=== PATIENT | male | born 1960 | race Caucasian/White ===

== ENCOUNTER 2018-11-26 09:52 | Outpatient (CLI) | payer OTHER, SELFPAY ==
[2018-11-26 10:57] LABS: Anion Gap 8.5 mmol/L (3-11); BUN 16 mg/dL (7-18); CO2 27.5 mmol/L (21.0-32.0); CREATININE 1.17 mg/dL (0.70-1.30); Calcium 9.1 mg/dL (8.5-10.1); Chloride 104 mmol/L (98-107); Glucose 143 mg/dL (70-100); NT-proBNP 215 pg/mL; Potassium 4.1 mmol/L (3.5-5.1); Sodium 140 mmol/L (136-145)
== END 2018-11-26 10:12 ==
PROVIDERS: PCP Family Medicine; Visit Provider Nurse Practitioner
DX: D86.85 Sarcoid myocarditis (principal)
CPT/HCPCS: 36415; 80048; 83880

== ENCOUNTER 2019-02-01 11:49 | Outpatient (CLI) | payer OTHER, SELFPAY ==
[2019-02-01 12:23] LABS: HCT 45.5 % (40.0-50.0); HGB 15.4 g/dL (13.5-17.5); Mean Corp. HGB Concentration 33.8 g/dL (32.0-36.0); Mean Corpuscular Hemoglobin 31.1 pg (27.0-33.0); Mean Corpuscular Volume 91.9 fL (80-95); Mean Platelet Volume 10.6 fL (8.0-11.0); Platelet Count 232 x1000/uL (130-400); RBC 4.95 m/cumm (4.50-6.00); RBC Distribution Width 12.9 % (11.8-14.1)
[2019-02-01 13:45] LABS: Anion Gap 8.2 mmol/L (3-11); BUN 18 mg/dL (7-18); CO2 28.8 mmol/L (21.0-32.0); CREATININE 1.07 mg/dL (0.70-1.30); Calcium 9.2 mg/dL (8.5-10.1); Chloride 103 mmol/L (98-107); Glucose 123 mg/dL (70-100); NT-proBNP 222 pg/mL; Potassium 4.4 mmol/L (3.5-5.1); Sodium 140 mmol/L (136-145)
[2019-02-01 14:02] LABS: Vitamin D 25 Total 23.4 ng/ml (30-100)
== END 2019-02-01 12:09 ==
PROVIDERS: PCP Family Medicine; Visit Provider Internal Medicine Cardiovascular Disease
DX: D86.85 Sarcoid myocarditis (principal)
CPT/HCPCS: 36415; 80048; 82306; 85027; 83880

== ENCOUNTER 2019-04-13 11:02 | Outpatient (CLI) | payer OTHER, SELFPAY ==
[2019-04-13 11:29] LABS: Abs Immature Grans 0.01 k/cumm (0.0-0.09); Absolute Basophil Count 0.03 k/cumm (0.0-0.2); Absolute Eosinophil Count 0.05 k/cumm (0.0-0.7); Absolute Lymphocyte Count 0.97 k/cumm (1.2-3.4); Absolute Monocyte Count 0.47 k/cumm (0.11-0.7); Absolute Neutrophil Count 8.42 k/cumm (1.2-6.7); Basophils % 0.3; Eosinophils % 0.5; HCT 44.7 % (40.0-50.0); HGB 15.5 g/dL (13.5-17.5); Immature Grans % 0.1; Lymphocytes % 9.7; Mean Corp. HGB Concentration 34.7 g/dL (32.0-36.0); Mean Corpuscular Hemoglobin 31.4 pg (27.0-33.0); Mean Corpuscular Volume 90.7 fL (80-95); Mean Platelet Volume 10.6 fL (8.0-11.0); Monocytes % 4.7; Neutrophils % 84.7; Platelet Count 204 x1000/uL (130-400); RBC 4.93 m/cumm (4.50-6.00); RBC Distribution Width 13.2 % (11.8-14.1); White Blood Cell Count 9.95 k/cumm (4.4-10.8)
[2019-04-13 12:43] LABS: ALT 62 U/L (12-78); AST 29 U/L (15-37); Albumin 3.6 g/dL (3.4-5.0); Alkaline Phosphatase 82 U/L (46-116); Anion Gap 10.1 mmol/L (3-11); BUN 20 mg/dL (7-18); Bilirubin, Total 0.6 mg/dL (0.2-1.0); CO2 25.9 mmol/L (21.0-32.0); CREATININE 0.96 mg/dL (0.70-1.30); Calcium 8.9 mg/dL (8.5-10.1); Chloride 104 mmol/L (98-107); Glucose 120 mg/dL (70-100); Potassium 4.2 mmol/L (3.5-5.1); Sodium 140 mmol/L (136-145); Total Protein 6.4 g/dL (6.4-8.2)
== END 2019-04-13 11:22 ==
PROVIDERS: PCP Family Medicine; Visit Provider Internal Medicine Pulmonary Disease
DX: D86.85 Sarcoid myocarditis (principal)
CPT/HCPCS: 36415; 80053; 85025

== ENCOUNTER 2019-06-18 09:23 | Outpatient (CLI) | payer OTHER, SELFPAY ==
[2019-06-18 10:05] LABS: Abs Immature Grans 0.04 k/cumm (0.0-0.09); Absolute Basophil Count 0.04 k/cumm (0.0-0.2); Absolute Eosinophil Count 0.07 k/cumm (0.0-0.7); Absolute Monocyte Count 0.77 k/cumm (0.11-0.7); Basophils % 0.3; Eosinophils % 0.6; HCT 45.9 % (40.0-50.0); HGB 15.9 g/dL (13.5-17.5); Immature Grans % 0.3; Lymphocytes % 8.4; Mean Corp. HGB Concentration 34.6 g/dL (32.0-36.0); Mean Corpuscular Hemoglobin 31.9 pg (27.0-33.0); Monocytes % 6.5; Neutrophils % 83.9; Platelet Count 202 x1000/uL (130-400); RBC 4.99 m/cumm (4.50-6.00); RBC Distribution Width 14.2 % (11.8-14.1); White Blood Cell Count 11.84 k/cumm (4.4-10.8)
[2019-06-18 10:14] LABS: Absolute Lymphocyte Count 0.99 k/cumm (1.2-3.4); Absolute Neutrophil Count 9.93 k/cumm (1.2-6.7)
[2019-06-18 10:43] LABS: ALT 51 U/L (12-78); AST 20 U/L (15-37); Albumin 3.8 g/dL (3.4-5.0); Alkaline Phosphatase 88 U/L (46-116); Anion Gap 10.2 mmol/L (3-11); BUN 23 mg/dL (7-18); Bilirubin, Total 0.6 mg/dL (0.2-1.0); CO2 25.8 mmol/L (21.0-32.0); CREATININE 0.95 mg/dL (0.70-1.30); Calcium 9.3 mg/dL (8.5-10.1); Chloride 104 mmol/L (98-107); Glucose 104 mg/dL (70-100); Potassium 4.6 mmol/L (3.5-5.1); Sodium 140 mmol/L (136-145); Total Protein 6.8 g/dL (6.4-8.2)
== END 2019-06-18 09:43 ==
PROVIDERS: PCP Family Medicine; Referring Provider Internal Medicine Pulmonary Disease; Visit Provider Internal Medicine Pulmonary Disease
DX: D86.85 Sarcoid myocarditis (principal)
CPT/HCPCS: 36415; 80053; 85025

== ENCOUNTER 2019-09-13 14:41 | Outpatient (CLI) | payer OTHER, SELFPAY ==
[2019-09-13 15:37] LABS: HCT 43.4 % (40.0-50.0); HGB 15.1 g/dL (13.5-17.5); Mean Corp. HGB Concentration 34.8 g/dL (32.0-36.0); Mean Corpuscular Hemoglobin 32.1 pg (27.0-33.0); Mean Corpuscular Volume 92.1 fL (80-95); Mean Platelet Volume 10.5 fL (8.0-11.0); Platelet Count 220 x1000/uL (130-400); RBC 4.71 m/cumm (4.50-6.00); RBC Distribution Width 13.2 % (11.8-14.1); White Blood Cell Count 9.63 k/cumm (4.4-10.8)
[2019-09-13 16:14] LABS: ALT 61 U/L (16-63); AST 29 U/L (15-37); Albumin 3.5 g/dL (3.4-5.0); Alkaline Phosphatase 95 U/L (46-116); Anion Gap 9.9 mmol/L (3-11); BUN 19 mg/dL (7-18); Bilirubin, Total 0.7 mg/dL (0.2-1.0); CO2 27.1 mmol/L (21.0-32.0); CREATININE 1.01 mg/dL (0.70-1.30); Calcium 8.8 mg/dL (8.5-10.1); Chloride 103 mmol/L (98-107); Glucose 120 mg/dL (70-100); Potassium 4.5 mmol/L (3.5-5.1); Sodium 140 mmol/L (136-145); Total Protein 6.5 g/dL (6.4-8.2)
== END 2019-09-13 15:01 ==
PROVIDERS: PCP Family Medicine; Visit Provider Internal Medicine Pulmonary Disease
DX: D86.85 Sarcoid myocarditis (principal); E55.9 Vitamin D deficiency, unspecified
CPT/HCPCS: 36415; 80053; 85027

== ENCOUNTER 2019-09-13 14:45 | Outpatient (CLI) | payer OTHER, SELFPAY ==
[2019-09-13 16:35] LABS: Vitamin D 25 Total 30.7 ng/ml (30-100)
== END 2019-09-13 15:05 ==
PROVIDERS: PCP Family Medicine
DX: E55.9 Vitamin D deficiency, unspecified (principal); D86.85 Sarcoid myocarditis
CPT/HCPCS: 82306

== ENCOUNTER 2020-05-26 10:37 | Emergency (ER) | payer OTHER, SELFPAY ==
[2020-05-26 10:43] VITALS: BP 139/86; PULSE 69; RESP 18; TEMP 36.6; O2SAT 99
--- NOTE | 2020-05-26 11:09 | ED.GENADUL_ITS ---
Discharge Plan Disposition Patient Disposition: HOME Condition: Stable Discharge Details Chief Complaint: FlankPain Clinical Impression: Pain of right sacroiliac joint Primary Care Provider: Kell Dangelo ED Provider: Musa Mcrae Home Meds and New Rx's Prescriptions: Continued metoprolol succinate 50 mg tablet extended release 24 hr 50 mg PO QPM RF: 0 folic acid 1 mg tablet 1 mg PO DAILY RF: 0 omega-3 fatty acids 1,000 mg capsule 1,000 mg PO BID RF: 0 coenzyme Q10 10 mg capsule 10 mg PO DAILY RF: 0 cholecalciferol (vitamin D3) 4,000 unit capsule 3,000 unit PO DAILY RF: 0 methotrexate (PF) 15 mg/0.3 mL auto-injector 10 mg SC QWEEK RF: 0 atorvastatin 40 MG tablet 40 mg PO DAILY Qty: 30 RF: 3 aspirin [Aspir-81] 81 MG tablet,delayed release (DR/EC) 1 tab PO DAILY RF: 0 Discharge Instructions Instructions: Leg Pain (ED) Additional Instructions: Please follow-up with physical therapy as prescribed. Home to rest today. No heavy lifting greater than 10 pounds. May perform new to chest and truncal mobilization as we discussed. May use heat and or ice to reduce discomfort. Please use 600 to 800 mg of ibuprofen every 8 hours, with food, as needed for pain. You may also use Tylenol. Continue your regular medications. Return if you develop a fever, abdominal distention/bloating, worsening abdominal pain or vomiting, or any other acute concerns. 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 Reports the gradual onset 4 days ago of right lower abdomen/flank pain. Does seem to be worse with movements. Is somewhat improved with rest. Some increased frequency of urination. No fever or vomiting. No known sick contacts. No recent travel. Past medical history is notable for sarcoidosis with multiorgan involvement, currently maintained on once weekly oral methotrexate. Vital signs are unremarkable and he is afebrile. He does exhibit discrete right lower quadrant tenderness without rebound or guarding. No inguinal masses or tenderness. Differential diagnosis would include sacroiliitis, musculoskeletal sarcoidosis, renal colic, atypical presentation of colitis or diverticulitis. IV access established, referred for urinalysis and laboratory testing. I reviewed [facility] including PET scan from 07/07/2019, this reveals normal head and neck, numerous areas of uptake within the ventricular myocardium as well as in the lungs. Scattered lesions throughout the spleen. Normal activity in all regions of the axial and visualized appendical or skeleton. Patient laboratories reveal a white count of 8, hematocrit 47, platelets 221. Chemistries are reassuring with creatinine 1.0. Urinalysis notable only for specific gravity of 1.03. As the patient is mildly immunosuppressed with methotrexate, he may have an occult infectious process ureteral calculus without hematuria. Therefore, referred for CT of the abdomen and pelvis. This does reveal known areas of sarcoidosis including lower lungs and splenic lesions. The bones and joints and intraperitoneal space are unremarkable. There is no evidence of inflammatory condition present. Given the paucity of findings, must consider that this is musculoskeletal and most likely etiology is SI joint. We discussed referral to physical therapy, home management bleeding NSAIDs, ice, stretching. We also discussed indications to seek reevaluation. Lab Data Lab results reviewed: Yes I reviewed the patient's lab results. Labs: Laboratory Results - last 24 hr 05/26/20 05/26/20 05/26/20 11:15 11:20 11:20 WBC 8.40 RBC 5.32 Hgb 16.4 Hct 47.3 MCV 88.9 MCH 30.8 MCHC 34.7 RDW 14.1 Plt Count 221 MPV 10.8 Immature Gran % 0.1 Neutrophils % 70.9 Lymphocytes % 16.4 Monocytes % 10.5 Eosinophils % 1.5 Basophils % 0.6 Absolute Neutrophils 5.95 Absolute Lymphocytes 1.38 Absolute Monocytes 0.88 H Absolute Eosinophils 0.13 Absolute Basophils 0.05 Sodium 138 Potassium 4.2 Chloride 103 Carbon Dioxide 29.1 Anion Gap 5.9 BUN 17 Creatinine 1.00 Estimated GFR/1.73 m2 >= 60.00 Glucose 110 H Calcium 8.9 Total Bilirubin 0.6 AST 25 ALT 57 Alkaline Phosphatase 108 Total Protein 7.3 Albumin 3.8 Urine Color Yellow Urine Clarity Clear Urine pH 6.0 Ur Specific [place] >= 1.030 H Urine Protein Negative Urine Ketones Negative Urine Blood Negative Urine Nitrite Negative Urine Bilirubin Negative Urine Urobilinogen 0.2 Ur Leukocyte Esterase Negative Urine Glucose Negative HPI General Mode of arrival: ambulatory . Date/Time Provider Initiated Documentation: 05/26/20 10:39 . Limitations to Documentation: no limitations . Information obtained by: patient . History of Present Illness 60 year old M presents to the emergency department with the chief complaint of R flank/lower abdomen pain x4 days, described as moderate, Quality is described as constant, and is localized to the abdomen and right. Patient reports radiation to back. Patient started experiencing this day(s) and it has been other (up and down). Rest improves symptom(s), Movement worsens symptoms . Patient notes denies chest pain, fever/chills, nausea/vomiting and syncope. Patient did receive the following treatments prior to arrival, NSAID Related Data Home Medications Medication Instructions Recorded Confirmed atorvastatin 40 mg PO DAILY #30 tab-cap 07/17/17 05/26/20 aspirin [Aspir-81] 1 tab PO DAILY 04/18/18 05/26/20 cholecalciferol (vitamin D3) 100 3,000 unit PO DAILY 06/01/19 06/01/19 mcg (4,000 unit) capsule coenzyme Q10 10 mg capsule 10 mg PO DAILY cap 06/01/19 05/26/20 folic acid 1 mg tablet 1 mg PO DAILY 06/01/19 05/26/20 methotrexate (PF) 15 mg/0.3 mL 10 mg SC QWEEK 06/01/19 06/01/19 subcutaneous auto-injector metoprolol succinate 50 mg 50 mg PO QPM tab 06/01/19 05/26/20 tablet,extended release 24 hr omega-3 fatty acids 1,000 mg 1,000 mg PO BID cap 06/01/19 05/26/20 capsule Allergies Allergy/AdvReac Type Severity Reaction Status Date / Time No Known Allergies Allergy Unverified 05/26/20 10:47 General Stated Complaint: FlankPain MERRICK: 3 Review of Systems Narrative: no fever, cough, change to taste or smell, no otheracute illness. Stable sarcoid. 6 systems reviewed and otherwise negative. COUNTS INCLUDE 234 BEDS AT THE [facility] Medical History CAD (coronary artery disease) Cardiac sarcoidosis Surgical History (Updated 09/09/18 @ 14:36 by [employer] PA) Arthroplasty of knee Social History Smoking/Tobacco Use Status: Never Drug use: Never Do you feel safe at home: Yes Do you feel safe in your relationship?: Yes Exam Narrative Exam Narrative: GEN: awake, alert, oriented 3. Pleasant, well groomed, interactive. HEAD: Normocephalic, atraumatic EYES: PERRL, EOMI NECK: Full ROM CHEST/RESP: Nontender, clear to auscultation bilateral, no wheeze/rhonchi/rales CARDIOVASCULAR: Distant, RRR, no murmur, rub benny. 2+ Rad pulse bilateral ABDOMEN: Soft, minimal tenderness to deep right lower abdomen/anterior superior iliac spine, no mass. No rebound tenderness. No flank tenderness, no lower midline back tenderness, +Bowel sounds EXT: Full ROM, no edema, no rash. Pain with right straight leg raise. No pain with passive movement of the hip. Neuro: Grossly normal neurologic exam, conversant, interactive. Psych: Speech fluent, thoughts congruent, affect normal Course Vital Signs Vital signs: Vital Signs Temperature 36.6 C 05/26/20 10:43 Pulse 69 05/26/20 10:43 Respiratory Rate 18 05/26/20 10:43 Blood Pressure 139/86 05/26/20 10:43 Pulse Oximetry 99 05/26/20 10:43 Temperature 36.6 C 05/26/20 10:43 Temperature Source Temporal Artery Scan 05/26/20 10:43 Pulse 69 05/26/20 10:43 Respiratory Rate 18 05/26/20 10:43 Respiratory Effort Non-Labored 05/26/20 10:51 Blood Pressure 139/86 05/26/20 10:43 Pulse Oximetry 99 05/26/20 10:43 Oxygen Delivery Method Room Air 05/26/20 10:43 Oxygen Flow Rate 0 05/26/20 10:43 Pain Level 4 05/26/20 10:51
[2020-05-26 11:21] LABS: Bilirubin Negative (Negative); Blood Negative (Negative); Clarity Clear (Clear); Glucose Negative (Negative); Ketones Negative (Negative); Leukocyte Esterase Negative (Negative); Nitrite Negative (Negative); Specific Gravity >= 1.030 (1.005-1.025); Urobilinogen 0.2 EU/dL (Up TO 0.2)
[2020-05-26 11:30] LABS: Abs Immature Grans 0.01 k/cumm (0.0-0.09); Absolute Basophil Count 0.05 k/cumm (0.0-0.2); Absolute Eosinophil Count 0.13 k/cumm (0.0-0.7); Absolute Lymphocyte Count 1.38 k/cumm (1.2-3.4); Absolute Monocyte Count 0.88 k/cumm (0.11-0.7); Absolute Neutrophil Count 5.95 k/cumm (1.2-6.7); Basophils % 0.6; Eosinophils % 1.5; HCT 47.3 % (40.0-50.0); HGB 16.4 g/dL (13.5-17.5); Immature Grans % 0.1 %; Lymphocytes % 16.4; Mean Corp. HGB Concentration 34.7 g/dL (32.0-36.0); Mean Corpuscular Hemoglobin 30.8 pg (27.0-33.0); Mean Corpuscular Volume 88.9 fL (80-95); Mean Platelet Volume 10.8 fL (8.0-11.0); Monocytes % 10.5; Neutrophils % 70.9; Platelet Count 221 x1000/uL (130-400); RBC 5.32 m/cumm (4.50-6.00); RBC Distribution Width 14.1 % (11.8-14.1)
[2020-05-26 11:43] LABS: ALT 57 U/L (16-63); AST 25 U/L (15-37); Albumin 3.8 g/dL (3.4-5.0); Alkaline Phosphatase 108 U/L (46-116); Anion Gap 5.9 mmol/L (3-11); BUN 17 mg/dL (7-18); Bilirubin, Total 0.6 mg/dL (0.2-1.0); CO2 29.1 mmol/L (21.0-32.0); Calcium 8.9 mg/dL (8.5-10.1); Chloride 103 mmol/L (98-107); Glucose 110 mg/dL (74-106); Potassium 4.2 mmol/L (3.5-5.1); Sodium 138 mmol/L (136-145); Total Protein 7.3 g/dL (6.4-8.2)
[2020-05-26 11:49] VITALS: BP 124/72; PULSE 56; RESP 18; O2SAT 96
--- NOTE | 2020-05-26 12:00 | DI.CT_ITS ---
EXAM: CT ABDOMEN PELVIS W CLINICAL HISTORY: RLQ PAIN X 4 DAYS, HX SARCOID. TECHNIQUE: Imaging Protocol: Axial computed tomography images with coronal and sagittal reformatted images were created and reviewed CONTRAST MATERIAL: Intravenous: Omnipaque 350 Contrast volume:100 ml Oral: /yes COMPARISON: CR PORTABLE CHEST ONE VIEW from 12/15/2016 FINDINGS: ABDOMEN: Lung Bases: Scattered small bilateral pulmonary nodules, consistent with the patient's history of mamadou coid. Pacemaker leads in the right atrium and right ventricle. Liver: Normal density. Small cyst inferior right lobe. Gallbladder and biliary tract: No radiodense calculus or dilation. Pancreas: Normal density, no abnormal calcifications or inflammatory process. Spleen: Normal size. Multiple hypodense lesions. Kidneys: Normal size, contour and axis. No radiodense stones or obstructive uropathy. No masses seen. Adrenal glands: No masses seen. Abdominal Aorta: Abdominal portion non-dilated. Soft tissues: Small fatty containing umbilical hernia. PELVIS: Bladder: Symmetric distention, no gross wall thickening. Bowel: Normal appendix. Mild sigmoid diverticulosis. No evidence of diverticulitis. No obstruction or bowel wall thickening. Peritoneal cavity: No ascites, collection or mesenteric inflammatory response. Bones: Within normal limits. Reproductive organs: Within normal limits. Lymph nodes: Mild degenerative disc changes.. Impression: No acute abnormality. RADIATION DOSE DELIVERED: Total DLP DATA REPOSITORY: All CT scans at this facility are submitted to the National Radiology Data Registry (NRDR) Dose Index Registry (DIR) with the [employer] (A[employer]). RADIATION OPTIMIZATION: All CT scans at this facility use at least one of these dose optimization te chniques: automated exposure control; mA and/or kV adjustment per patient size (includes targeted exa ms where dose is matched to clinical indication); or iterative reconstruction.
[2020-05-26] MEDS: Breeza Beverage 473 ML BTL PO ×2 (12:14→12:15)
[2020-05-26] MEDS: Omnipaque 350 MG/ML 50 ML BTL IJ (12:14)
[2020-05-26] MEDS: Omnipaque 350 MG/ML 100 ML BTL IJ (13:10)
[2020-05-26 14:18] VITALS: BP 120/72; PULSE 63; RESP 16; O2SAT 97
--- NOTE | 2020-05-26 14:37 | DI.VRAD_ITS ---
PROCEDURE INFORMATION: Exam: CT Abdomen And Pelvis With Contrast Exam date and time: 05/26/2020 1:38 PM Age: 60 years old Clinical indication: Abdominal pain; Localized; Right lower quadrant (rlq); Additional info: Rlq pain x 4 days, HX sarcoid TECHNIQUE: Imaging protocol: Computed tomography of the abdomen and pelvis with intravenous contrast. COMPARISON: No relevant prior studies available. FINDINGS: Lungs: Bilateral lower lung nodules consistent with clinical history of sarcoidosis. Liver: 7 mm hypodense liver lesion. Gallbladder and bile ducts: Unremarkable. No ductal dilation. Pancreas: Normal. No ductal dilation. Spleen: Multiple hypodense splenic lesions. No splenomegaly. Adrenals: Normal. No mass. Kidneys and ureters: Normal. No hydronephrosis. Stomach and bowel: No acute findings. No obstruction. No mucosal thickening. Appendix: No evidence of appendicitis. Intraperitoneal space: Unremarkable. No free air. No significant fluid collection. Vasculature: No abdominal aortic aneurysm. Lymph nodes: No significant adenopathy. Bladder: Unremarkable as visualized. Reproductive: Unremarkable as visualized. Bones/joints: No acute findings. Soft tissues: Unremarkable. IMPRESSION: No acute findings. Splenic lesions and lung nodules consistent with sarcoidosis. Dictated and Authenticated by: Abdifatah Jorge MD. Ordering:NILS Vigil MD
[2020-05-26 14:44] LABS: C-Reactive Protein 0.12 mg/dL (0.0-0.3)
== END 2020-05-26 15:16 | disposition home or self-care (01) ==
PROVIDERS: Emergency Provider Emergency Medicine; PCP Family Medicine
DX: M54.31 Sciatica, right side (principal)
CPT/HCPCS: 36415; 80053; 99285; 74177; 81003; 85025; 86140; 99284; J3490; Q9967

== ENCOUNTER 2020-06-16 10:20 | Outpatient (CLI) | payer OTHER, SELFPAY ==
[2020-06-20 21:41] LABS: SARS-CoV-2 RNA Undetected (Undetected)
== END 2020-06-16 10:40 ==
PROVIDERS: PCP Family Medicine; Visit Provider Nurse Practitioner Family
DX: Z11.59 Encounter for screening for other viral diseases (principal)
CPT/HCPCS: U0003

== ENCOUNTER 2020-08-08 10:14 | Day surgery (SDC) | payer OTHER, SELFPAY ==
--- NOTE | 2020-08-08 07:23 | W.PM.DSUDISC ---
Discharge Plan Disposition Patient Disposition: HOME Condition: Good Discharge Details Reason For Visit: Left carpal tunnel syndrome Attending Provider: Kristian Spence Primary Care Provider: Kell Dangelo Home Meds and New Rx's Prescriptions: Continued metoprolol succinate 50 mg tablet extended release 24 hr 50 mg PO QPM RF: 0 folic acid 1 mg tablet 1 mg PO DAILY RF: 0 omega-3 fatty acids 1,000 mg capsule 1,000 mg PO BID RF: 0 coenzyme Q10 10 mg capsule 10 mg PO DAILY RF: 0 cholecalciferol (vitamin D3) 4,000 unit capsule 3,000 unit PO DAILY RF: 0 methotrexate (PF) 15 mg/0.3 mL auto-injector 10 mg SC QWEEK RF: 0 atorvastatin 40 MG tablet 40 mg PO DAILY Qty: 30 RF: 3 aspirin [Aspir-81] 81 MG tablet,delayed release (DR/EC) 1 tab PO DAILY RF: 0 Discharge Instructions Stand Alone Forms: Jordy Caputo Tunnel Release Activity:: Activity as Tolerated Remove Dressings/Wound Care:: 48 hours Shower/Bathe:: 48 hours Diet:: As Tolerated Discharge Orders Discharge Orders: Discharge Order (Routine); Ordered 08/08/20 Ordered By: Cathy Lemus DS: Diagnosis Discharge Diagnosis (1) Left carpal tunnel syndrome: Status: Acute
[2020-08-08 10:50] VITALS: BP 117/79; PULSE 60; RESP 16; TEMP 36.1; O2SAT 99
[2020-08-08] MEDS: Lactated Ringers 1,000 ML 80 ML IV (10:55)
[2020-08-08] MEDS: ceFAZolin 2 GM/50 ML BAG IVPB (11:12)
[2020-08-08] MEDS: Sodium Bicarbonate 50 MEQ/50 ML VIAL (11:20)
[2020-08-08 12:05] VITALS: BP 111/73; PULSE 57; RESP 16; TEMP 36.4; O2SAT 97
--- NOTE | 2020-08-09 07:35 | ROE_ITS ---
Date of service: 08/08/20 Time of Service: 11:35 Operative Note Operative Note DATE OF PROCEDURE: 08/08/20 PRE-OP DIAGNOSIS: Right Carpal Tunnel Sydrome POST-OP DIAGNOSIS: same PROCEDURE: Right Endoscopic Carpal Tunnel Release SURGEON: Kristian Spence ANESTHESIA: GETPercy ESTIMATED BLOOD LOSS: 0 PATHOLOGY: none sent TOURNIQUET TIME: 4 COMPLICATIONS: None Patient was transported to: same day Patient's condition: stable Indications: I have seen Sergio in clinic for symptoms of carpal tunnel syndrome. The numbness, tingling, and pain limited function. Clinical exam findings with nerve conduction tests confirmed the diagnosis of carpal tunnel syndrome. Nonoperative measures such as bracing, time, activity modifications had been tried but disability and pain persisted. I discussed carpal tunnel release with the patient. I reviewed the risks of the procedure to include, but not limited to, bleeding, infection, pain, stiffness, incomplete release, damage to nerves or vessels, persistent numbness, recurrence. Despite these risks, the patient elected to proceed. Findings: There was tightened carpal tunnel. This was dilated and released successfully with the endoscopic with increased space within the tunnel. The antebrachial fascia was released proximally freeing the median nerve at the wrist. Procedure Description: Sergio was greeted in the preoperative holding area where the correct side was identified and marked. The consent was reviewed with the patient and signed. The history and physical was updated. All questions were answered. Sergio was taken back to the operating room. The patient was placed into the supine position on the operating room table with the right arm on an arm board. A nonsterile tourniquet was placed high onto the arm. All bony prominences were well padded. Prophylactic antibiotics in the form of Cefazolin were administered. The right arm was then prepped with Chloraprep and draped in a standard fashion with stockinette and extremity drape. A timeout to confirm correct identity, side and site, procedure, allergies, anesthesia, and medical concerns was performed. The surgical site was marked in the volar wrist creases in line with the radial border of the fourth ray. This area was anesthetized with approximately 6cc of 1% Lidocaine. The limb was then exsanguinated with an Esmarch. The skin was incised with a 15 blade, approximately 1cm. The skin only was cut and the deeper tissue was dissected bluntly with a tenotomy scissor, avoiding passing nerve and venous structures. The fascia was penetrated and opened bluntly. A two-prong skin hook was placed under this proximal fascial edge. A series of hamate finders were used to identify and dilate the carpal tunnel. Synovial elevator was used to free synovial attachments to the underside of the transverse carpal ligament. My thumb was kept in the palm to randy the distal extent of the carpal tunnel and correctly position the hand. The [employer] endoscope was inserted without difficulty and without resistance. Excellent vi sualization showed horizontally running fibers of the transverse carpal ligament (TCL). The distal extent of the TCL was visualized and the end of the scope palpated with the thumb. The blade was elevated and withdrawn from distal to proximal. The TCL was split into two flaps. The endoscope was reinserted to confirm complete release and any remnant ligament was incised. The scope was withdrawn and the proximal aspect of the carpal tunnel was grossly inspected and appeared release with the median nerve visible. The antebrachial fascia at the level of the wrist was then freed from the overlying skin and then the underlying median nerve with blunt dissection. This was transected longitudinally for about 3cm proximal to the wrist incision. The wound was then irrigated with easy flow of irrigant distally and proximally. The incision was closed with a single 4-0 Nylon suture. The wound was dressed with Xeroform, Gauze, Kerlix and Zander. The tourniquet was deflated with the initial dressing and held with some pressure. Blood flow returned easily to all digits with capillary refill less than 2 seconds. The patient tolerated the procedure well and was returned to the Same Day Surgery area in a stable condition suffering no known complication.
== END 2020-08-08 12:52 | disposition home or self-care (01) ==
LOC: SUR 10:14
PROVIDERS: PCP Family Medicine; Visit Provider Student in an Organized Health Care Education/Training Program
PROC: 01N54ZZ Release Median Nerve, Percutaneous Endoscopic Approach (ICD-10-PCS; CPT 29848; principal; 2020-08-08 11:15)
DX: G56.02 Carpal tunnel syndrome, left upper limb
CPT/HCPCS: 29848; J0690; J1885; J2001; J2405; J2704

== ENCOUNTER 2021-10-24 11:14 | Outpatient (REF) | payer OTHER, SELFPAY ==
[2021-10-24 15:33] LABS: Source Nasal/Nares
[2021-10-24 15:35] LABS: COVID-19 PCR Negative (Negative)
== END 2021-10-24 11:15 | disposition home or self-care (01) ==
LOC: LBN 11:14
PROVIDERS: PCP Family Medicine; Visit Provider Family Medicine
DX: Z20.822 Contact with and (suspected) exposure to COVID-19 (principal)
CPT/HCPCS: 87635; U0003

== ENCOUNTER 2022-03-07 15:55 | Outpatient (REF) | payer OTHER, SELFPAY ==
[2022-03-08 20:30] LABS: COVID-19 RT-PCR UVMMC Result Negative (Negative)
== END 2022-03-07 15:56 | disposition home or self-care (01) ==
LOC: LBN 15:55
PROVIDERS: PCP Family Medicine; Visit Provider Family Medicine
DX: Z20.822 Contact with and (suspected) exposure to COVID-19 (principal)
CPT/HCPCS: U0003

== ENCOUNTER 2022-05-06 11:17 | Outpatient (REF) | payer OTHER, SELFPAY ==
[2022-05-06 15:35] LABS: AST 30 U/L (15-37); Albumin 3.9 g/dL (3.4-5.0); Alkaline Phosphatase 98 U/L (46-116); Anion Gap 11.1 mmol/L (3-11); BUN 17 mg/dL (7-18); CO2 25.9 mmol/L (21.0-32.0); Calcium 8.5 mg/dL (8.5-10.1); Calculated LDL 161 mg/dL (<100); Chloride 103 mmol/L (98-107); Cholesterol 246 mg/dL (<200); Glucose 91 mg/dL (74-106); HDL Cholesterol 70 mg/dL (40-60); Potassium 4.1 mmol/L (3.5-5.1); Sodium 140 mmol/L (136-145); Triglyceride 78 mg/dL (<150)
[2022-05-06 16:23] LABS: ALT 53 U/L (16-63)
[2022-05-07 09:00] LABS: PSA, Screening 1.2 ng/mL (<=4.5)
== END 2022-05-06 11:18 | disposition home or self-care (01) ==
LOC: NCHCN 11:17
PROVIDERS: PCP Family Medicine; Visit Provider Family Medicine
DX: Z00.00 Encounter for general adult medical examination without abnormal findings (principal); Z13.220 Encounter for screening for lipoid disorders; Z13.228 Encounter for screening for other metabolic disorders; Z12.5 Encounter for screening for malignant neoplasm of prostate
CPT/HCPCS: 80053; 80061; 84153

== ENCOUNTER 2022-06-21 11:03 | Outpatient (CLI) | payer OTHER, SELFPAY ==
--- NOTE | 2022-06-21 10:45 | DI.RAD_ITS ---
Exam(s) XR KNEE RT 3V AP,LAT,JACOBO EXAM: XR KNEE RT 3V AP,LAT,JACOBO CLINICAL HISTORY: RIGHT KNEE PAIN. TECHNIQUE: 2D digital imaging was performed of the right knee. Three views obtained. Lateral and PA tunnel views were obtained. COMPARISON: No exams were available for comparison FINDINGS: BONES: No acute fracture is present. No bony destructive lesion is seen. JOINTS: There is marked joint space narrowing in the medial femoral tibial joint. Periarticular spur ring seen at the posterior patella and the medial femoral tibial joint. No joint effusion is seen. SOFT TISSUE: Normal. IMPRESSION: Osteoarthritis of the right knee. DATA REPOSITORY: RADIATION DOSE DELIVERED:
--- NOTE | 2022-06-21 11:00 | DI.RAD_ITS ---
Exam(s) XR STANDING ALIGNMENT EXAM: XR STANDING ALIGNMENT CLINICAL HISTORY: knee pain. TECHNIQUE: 2D digital imaging was performed. Four images were obtained. COMPARISON: No exams were available for comparison FINDINGS: BONES: The hips are well maintained. There are marked degenerative changes seen in the right knee wi th joint space narrowing and periarticular spurring most marked in the medial femoral tibial joint. Moderately severe degenerative changes are seen in the left knee with joint space narrowing and peria rticular spurring. Chondrocalcinosis is present. Findings of a prior right ACL repair are noted. T he ankles are well maintained.The left lower extremity measures 90.3 cm. The right lower extremity m easures 88.5 cm. SOFT TISSUE: Normal. IMPRESSION: Significant osteoarthritis of the knees bilaterally. DATA REPOSITORY: RADIATION DOSE DELIVERED:
== END 2022-06-21 11:04 | disposition home or self-care (01) ==
PROVIDERS: PCP Family Medicine; Referring Provider Family Medicine; Visit Provider Student in an Organized Health Care Education/Training Program
DX: M17.0 Bilateral primary osteoarthritis of knee (principal)
CPT/HCPCS: 73562; 77073

== ENCOUNTER 2022-08-26 04:02 | Outpatient (CLI) | payer OTHER, SELFPAY ==
[2022-08-26 10:48] LABS: HCT 46.3 % (40.0-50.0); MCH 30.7 pg (27.0-33.0); MCHC 34.6 % (32.0-36.0); MCV 89 fL (80-95); MPV 10.3 fL (8.0-11.0); Platelet Count 216 10^3/uL (130-400); RBC 5.21 10^6/uL (4.36-5.78); RDW-SD 42.5 fL; WBC 8.21 10^3/uL (4.4-10.8)
[2022-08-26 11:32] LABS: Anion Gap 6.9 mmol/L (3-11); BUN 17 mg/dL (7-18); CO2 29.1 mmol/L (21.0-32.0); CREATININE 0.9 mg/dL (0.70-1.30); Calcium 9.2 mg/dL (8.5-10.1); Chloride 103 mmol/L (98-107); Estimated GFR 95.37 (mL/min/1.73m2); Glucose 104 mg/dL (74-106); Potassium 4.3 mmol/L (3.5-5.1); Sodium 139 mmol/L (136-145)
== END 2022-08-26 04:03 | disposition home or self-care (01) ==
LOC: LBO 04:02
PROVIDERS: PCP Family Medicine; Visit Provider Student in an Organized Health Care Education/Training Program
DX: M25.561 Pain in right knee (principal); M17.31 Unilateral post-traumatic osteoarthritis, right knee; Z01.818 Encounter for other preprocedural examination; Z01.812 Encounter for preprocedural laboratory examination
CPT/HCPCS: 36415; 80048; 85027

== ENCOUNTER 2022-08-27 06:06 | Day surgery (SDC) | payer OTHER, SELFPAY ==
--- NOTE | 2022-08-26 17:43 | W.ANESPRE ---
General Info Date of Service Date Performed: 08/27/22 Height: 5 ft 6 in Weight: 85.275 kg Body Mass Index (BMI): 30.3 Surgical Procedure: Operation Date: 08/27/22 07:40 Proposed Procedure Side Surgeon p Knee Total Arthroplasty Cementless Right Kristian Spence MD Meds Allergies and Home Medications Allergies Allergy/AdvReac Type Severity Reaction Status Date / Time No Known Allergies Allergy Unverified 08/27/22 06:18 Home Medication Medication Instructions Recorded rosuvastatin 5 mg tablet (Crestor) 5 mg PO DAILY 06/21/22 acetaminophen 500 mg tablet 1,000 mg PO Q8H PRN pain #90 tabs 08/27/22 aspirin 81 mg tablet,delayed 81 mg PO BID #60 tabs 08/27/22 release celecoxib 200 mg capsule 200 mg PO BID PRN pain #60 caps 08/27/22 dexamethasone 4 mg tablet 4 mg PO DAILY #2 tabs 08/27/22 gabapentin 300 mg capsule 300 mg PO QHS #14 caps 08/27/22 oxycodone 5 mg tablet 5 mg PO Q4H #15 tabs 08/27/22 pantoprazole 40 mg tablet,delayed 40 mg PO DAILY #30 tabs 08/27/22 release Current Visit Medications: Current Medications Generic Name Dose Route Start Last Admin Trade Name Freq PRN Reason Stop Dose Admin Acetaminophen 1,000 mg 08/27/22 06:00 Acetaminophen 500 Mg Tab PO 08/27/22 16:00 PREOP [facility] Celecoxib 400 mg 08/27/22 06:00 Celecoxib 200 Mg Cap PO 08/27/22 16:00 PREOP [facility] Gabapentin 300 mg 08/27/22 06:00 Gabapentin 300 Mg Cap PO 08/27/22 16:00 PREOP [facility] Tranexamic Acid 1,000 mg/ 60 mls @ 360 mls/hr 08/27/22 06:00 Sodium Chloride IVPB 08/27/22 16:00 PREOP [facility] Ringer's Solution 1,000 mls @ 80 mls/hr 08/27/22 06:00 IV 08/27/22 23:59 INFUSION [facility] IV Miscellaneous Supplies 1 each 08/27/22 06:00 Iv Access IV 08/27/22 23:59 DIRECTED [facility] Sodium Chloride 0 ml 08/27/22 06:00 Normal Saline Flush 10 Ml Syr IV 08/27/22 23:59 PRN PRN Sodium Chloride 0 ml 08/27/22 06:00 Normal Saline 10 Ml Vial IJ 08/27/22 23:59 DIRECTED PRN Sterile Water 0 ml 08/27/22 06:00 Water,Injection,Sterile 10 Ml Vial IJ 08/27/22 23:59 DIRECTED PRN PFSH Active Problems Active Problems: Problem Status Onset Code Complex tear of medial meniscus of right knee as current injury 11/11/16 S83.231A Derangement of medial meniscus of left knee 11/11/16 M23.304 Post-traumatic osteoarthritis of right knee 11/11/16 M17.31 VT (ventricular tachycardia) I47.2 Nonischemic cardiomyopathy I42.8 Sarcoidosis D86.9 ICD (implantable cardioverter-defibrillator) in place Z95.810 Encounter for screening for other viral diseases Z11.59 Left carpal tunnel syndrome G56.02 Ulnar neuropathy at elbow of left upper extremity G56.22 Encounter for screening laboratory testing for COVID-19 virus Z20.822 Medical History Medical History CAD (coronary artery disease) Pt. denies this Cardiac sarcoidosis Hx of ventricular tachycardia Surgical History Surgical History Arthroplasty of knee L Knee: ACL Repair R Knee: Menicus repair Per pt. no knee replacement History of bilateral carpal tunnel release History of bronchoscopy History of cardiac catheterization 2017-pt.states no stents. History of carpal tunnel surgery of right wrist Hx of colonoscopy Hx of right knee surgery Tobacco Smoking/Tobacco Use Status: Never Alcohol Alcohol Intake: current Alcohol intake frequency: 0-2 drinks per day Alcohol type: wine Substance Use Substance use: Never Substance use type: does not use Details: alcohol: one glass of wine Vital Signs and Lab Results Vital Signs Most Recent Vital Signs in EMR: Temp Pulse Resp BP Pulse Ox 36.4 C L 72 16 138/82 97 08/27/22 06:28 08/27/22 06:28 08/27/22 06:28 08/27/22 06:28 08/27/22 06:28 Lab Results Blood Type / Crossmatch: No Data to Display Complete Blood Count: White Blood Count 8.21 10^3/uL (4.4-10.8) 08/26/22 10:36 Red Blood Count 5.21 10^6/uL (4.36-5.78) 08/26/22 10:36 Hemoglobin 16.0 g/dL (13.5-17.5) 08/26/22 10:36 Hematocrit 46.3 % (40.0-50.0) 08/26/22 10:36 Platelet Count 216 10^3/uL (130-400) 08/26/22 10:36 Complete Metabolic Panel: Sodium Level 139 mmol/L (136-145) 08/26/22 10:36 Potassium Level 4.3 mmol/L (3.5-5.1) 08/26/22 10:36 Chloride Level 103 mmol/L (98-107) 08/26/22 10:36 Carbon Dioxide Level 29.1 mmol/L (21.0-32.0) 08/26/22 10:36 Blood Urea Nitrogen 17 mg/dL (7-18) 08/26/22 10:36 Creatinine 0.9 mg/dL (0.70-1.30) 08/26/22 10:36 Calcium Level 9.2 mg/dL (8.5-10.1) 08/26/22 10:36 Glucose Level 104 mg/dL (74-106) 08/26/22 10:36 Liver Function Panel: No Data to Display Coagulation Panel: No Data to Display Cardiac Panel: No Data to Display Arterial Blood Gas: No Data to Display Venous Blood Gas: No Data to Display Pancreas Panel: No Data to Display Thyroid Panel: No Data to Display Infectious Disease: No Data to Display Blood Cultures: No Data to Display Toxicology Panel: No Data to Display Imaging and Studies Imaging and Studies Study information below may be from another EMR and interpreted by another provider. Please see original notes in EMR for more complete details. Stress Test Summary: cardiopulmonary stress test, 10/2021: non-diagnositc, nonspecific evidence of ischemia, Anesthesia Assessment and Plan Anesthesia History Personal History: No History of Anesthesia Complications Family History: No Family History of Anesthesia Complications Exercise Tolerance Exercise Tolerance: Metabolic Equivalents>4 Cardiac & Pulmonary Exam Cardiac Exam: Normal S1/S2 Heart Sounds Pulmonary Exam: Clear Bilateral Breath Sounds Implantable Cardiac Device Does patient have a Pacemaker or an ICD?: Yes Device Records And Information Manager:: [employer] MRI Reason for Placement:: V-tach Date of Last Device Interrogation:: 07/11/22 Airway Exam Known Difficult Airway: No Mallampati Class: 2 Mouth Opening: Normal (> 3cm) Thyromental Distance: Greater than 3 cm Neck Range of Motion: Full ROM Neck Circumference: Normal Teeth Condition: Normal Dentition ASA Classification ASA Score: ASA 3 Emergency Case?: No NPO Status NPO Status: NPO Clears >2 hours, Solids >8 hours Anesthesia Plan Resuscitation Status: Full Code Anesthesia Technique: Spinal Anesthesia Airway Planned: Natural Airway Pain Management: Surgeon and patient request nerve block Monitors Used: Standard Monitors Preoperative Comments:: 62 yo male for TKA. Sig PMHx: sarcoidosis ( dx+ PET/EBUS, with lung and cardiac involvment, has done prednosine and mtx for a few years), ICD (DDD medtronic evera, VF 200bpm, VT 158 bmp)/VT, cardiomyopathy, never smoke, occ EtOH. EKG: RBBB, NSR , 1sr degree AVB. Cardiac MRI: EF 50%, mild RV enlargement. ECHO: LVEF 54%, GLS -16%, mild concentric hypertrophy, mild MR/TR Cath: mild CAD Chest CT: bilateral pulmonary nodules consitent with sarcoid. Previous Anes: gates 3 grade 1.
[2022-08-27] VITALS (12 sets, daily range): BP systolic 80–138; BP diastolic 49–85; PULSE 64–79; RESP 13–20; TEMP 36.1–36.6; O2SAT 94–98; BMI 30.3
[2022-08-27] MEDS: Acetaminophen 500 MG TAB 1000 MG PO (06:36)
[2022-08-27] MEDS: Celecoxib 200 MG CAP 400 MG PO (06:36)
[2022-08-27] MEDS: Gabapentin 300 MG CAP PO (06:36)
[2022-08-27] MEDS: Lactated Ringers 1,000 ML 80 ML IV (07:00)
--- NOTE | 2022-08-27 07:02 | PDOC.DSDIS_ITS ---
Discharge Plan Disposition Patient Disposition: HOME Condition: Good Discharge Details Reason For Visit: Right Knee DJD Attending Provider: Kristian Spence Primary Care Provider: Kell Dangelo Home Meds and New Rx's Prescriptions: New celecoxib 200 mg capsule 200 mg PO BID PRN (Reason: pain) Qty: 60 1RF aspirin 81 mg tablet,delayed release (DR/EC) 81 mg PO BID Qty: 60 0RF acetaminophen 500 mg tablet 1,000 mg PO Q8H PRN (Reason: pain) Qty: 90 3RF dexamethasone 4 mg tablet 4 mg PO DAILY Qty: 2 0RF Rx Instructions: Starting Post-Operative Day #1 (Day after surgery) pantoprazole 40 mg tablet,delayed release (DR/EC) 40 mg PO DAILY Qty: 30 0RF gabapentin 300 mg capsule 300 mg PO QHS Qty: 14 0RF oxycodone 5 mg tablet 5 mg PO Q4H Qty: 15 0RF Continued rosuvastatin [Crestor] 5 mg tablet 5 mg PO DAILY Discharge Instructions Additional Instructions: Total Knee Discharge Instructions Activity: The most important activity is to walk and gently move the knee. You should try to take short walks a few times a day. It is important that when resting you work on keeping the knee straight. Avoid putting a pillow behind the knee as this will encourage flexion. Work on range of motion exercises as provided by Physical Therapy. - Start outpatient physical therapy within 2 weeks. - You should wear the ASHLEY hose on both legs for 2 weeks. You may remove these at night. You may also use any compression sock in place of the ASHLEY hose. - Utilize [employer] to review exercises, see videos on exercises and obtain basic information pertaining to your surgery and your recovery. Dressing: Remove the Zander wrap by 2 days after your surgery and put on the ASHLEY stocking given to you from the hospital. Keep the surgical dressing (underneath the ZANDER wrap) in place for at least one week. After the first week it may be removed and replaced with light gauze and tape or nothing. The wound and dressing may get wet after 3 days but avoid soaking the dressing or otherwise it will need to be changed. Many people prefer covering the dressing with cling wrap (saran wrap) to minimize it from getting soaked. If it gets wet, just pat dry. If it starts to peel off then it will need to be changed. Medications: - You should take Tylenol and anti-inflammatory Celebrex as your primary pain control medications. If the Celebrex is too expensive or not covered, please call the office for another alternative (Advil/Ibuprofen or Naproxen/Aleve) - You have been prescribed a stronger pain medication Oxycodone for breakthrough pain, take as needed as prescribed. - You have also been prescribed a stomach acid reduction agent Pantoprozole to help reduce stomach acid and reflux. - You have been prescribed Gabapentin to take at night for restlessness and nerve pain. - You have also been prescribed Decadron for postoperative pain and nausea. One dose was given in the IV around your surgery. You will take one pill daily for 2 days starting the day after surgery (08/28/22). - You will be taking Aspirin 81mg twice a day for DVT prevention unless instructed otherwise. You will start this tonight. - If you have constipation you should take Colace or Miralax (both [id number]). It takes most people 3-4 days to have a bowel movement. Follow-up: 2 weeks If you have any acute concerns or questions, please do not hesitate to contact the office at [phone]. You may contact Dr. Spence with any questions after hours through the hospital at [phone] or on his cell phone at [phone]. Referrals: Kristian Spence MD [ [facility] STAFF PHYSICIAN] - Equipment/Supplies: Walker Activity:: Activity as Tolerated Shower/Bathe:: 72 hours Diet:: As Tolerated Discharge Orders Discharge Orders: Discharge Order (Routine); Ordered 08/27/22 Ordered By: Kristian Spence
[2022-08-27] MEDS: ceFAZolin 2 GM/50 ML BAG IVPB (07:30)
--- NOTE | 2022-08-27 07:58 | W.ANESNERVE ---
Nerve Block Single Injection Procedure Date and Time Date Performed: 08/27/22 Procedure Start: 07:18 Location Where Procedure Performed Procedure Location: Day Surgery Unit Reason Performed: Postoperative Analgesia Requesting Provider: Kristian Spence Timeout Performed Timeout Performed: Yes Monitoring Used ECG, Blood Pressure and SpO2 Sterility Sterility: Hand Hygiene, Surgical Cap, Surgical Mask and Sterile Gloves Sedation Given During Procedure Sedation Given (Indicate Dose Given): Versed IV Dose:: 2 mg Patient Mental Status Patient Mental Status: Sedate with meaningful communication Nerve Block 1st Nerve Block: Laterality: Right Block Type: Adductor Canal Needle / Catheter Used: 100mm SonoPlex II Local Anesthetic Bolus (Indicate Dose Given): Injected in 3-5ml increments after negative blood aspiration and Bupivacaine 0.375% Dose:: 10 mL Additives (Indicate Dose Given): None Ultrasound: Sterile probe cover and gel used Ultrasound Image Saved?: Yes Nerve Stimulator: Not Used Paresthesia: None Procedure Tolerated: No Complications Procedure Outcome: Successful Performed By: Isaias Howard
--- NOTE | 2022-08-27 09:09 | ROE_ITS ---
Date of service: 08/27/22 Time of Service: 08:50 Operative Note Operative Note DATE OF PROCEDURE: 08/27/22 PRE-OP DIAGNOSIS: Right Knee Osteoarthritis POST-OP DIAGNOSIS: same PROCEDURE: Right Total Knee Replacement SURGEON: Kristian Spence DRILLING MANAGER: Randy Bernal ANESTHESIA TYPE: Spinal Refer to Anesthesia Record ESTIMATED BLOOD LOSS: 250 PATHOLOGY: none sent TOURNIQUET TIME: 0 COMPLICATIONS: None Patient was transported to: PACU Patient's condition: stable Implants: 1. Depuy Attune Cementless Cruciate Retaining Femoral Component, Size 7 2. Depuy Attune Cementless Rotating Platform Tibial Component, Size 6 3. Depuy Attune 7x6 CR/RP Poly 4. Depuy Attune Patellar Component, Size 38 Indications: I have seen Sergio in clinic for symptoms of knee arthritis, confirmed with radiographic findings. He has exhausted nonoperative methods and was having significant limitations in daily function and desired better function and less pain. I discussed the technical details of a knee replacement. I explained the risks of the procedure to include, but not limited to, bleeding, infection, pain, stiffness, fracture, damage to nerves and vessels, damage to muscles and tendons, loosening, need for repeat procedure, blood clot and cardiopulmonary demise. Despite these risks, Sergio elected to proceed. Findings: There was significant signs of arthritis throughout the knee, focused over the medial aspect primarily. Procedure Description: Sergio was greeted in the preoperative holding area where the correct side was identified and marked. The consent was reviewed with the patient and signed. The history and physical was updated. All questions were answered. Preoperative medications were administered: Acetaminophen 1000mg, Celebrex 400mg, and Gabapentin 300mg. An adductor canal block was then administered by the anesthesia team in the PACU. Sergio was taken back to the operating room. A spinal anesthestic was then administered. The patient was placed into the supine position on the operating room table. A nonsterile tourniquet was placed high onto the leg but only used for cementing. Posts were placed for positioning during the procedure. All bony prominences were well padded. Prophylactic antibiotics in the form of Cefazolin were administered. 1g of Tranxemic Acid was given intravenously within 30 minutes of incision. The right leg was then prepped with Chloraprep and draped in a standard fashion with impervious stockinette. A second prep with Chloraprep was performed prior to application of Iodine impregnated skin p rotection. A timeout to confirm correct identity, side and site, procedure, allergies, anesthesia, and medical concerns was performed. With the knee in some flexion, a midline incision was made overlying the knee. This was biased laterally based on the previous medial incision. However, given the location of the medial incision and the small size and duration since it was made, a new incision was made over the middle of the knee. Full thickness skin flaps were raised once the extensor mechanism was encountered. These were raised medially and laterally. Any bleeding was controlled with electrocautery. Once the extensor mechanism was fully exposed, a medial parapatellar arthrotomy was performed in a flexed position. All bleeding from the arthrotomy and the geniculate arteries was coagulated. A medial subperiosteal peel was performed with electrocautery to the midcoronal plane. Due to the significant varus deformity the entire medial tibial plateau was exposed. The fat pad was removed while keeping the patellar tendon protected. The anterior distal femur synovium was removed for later visualization. The ACL and PCL were resected and the anterior horn of the lateral meniscus was transected. The knee was then flexed with the patella everted. Large osteophytes from the tibia were removed. Large osteophytes from the femur were removed. Using a step drill, and based on preoperative templating, the femoral canal was entered. This was done with a step drill without any difficulty. The intramedullary distal femoral cut guide was inserted, set to a 6 degree valgus cut and 8mm cut thickness. The distal femoral cut guide was then held in position and pinned. With the soft tissues protected, the distal cut was performed. This was passed over a few times to ensure a planar cut. I then turned attention to the tibia. The extramedullary guide was placed onto the leg. The distal aspect was slid medial to adjust for position of center of ankle and stay in line with shaft of the tibia. Approximately 3-5 degrees of posterior slope was kept in the proximal cutting guide. The center of the guide was aligned with the PCL. The stylus was used to assess cut thickness. The medial side, most involved side, was set for a 2mm cut posteriorly. This was then held in position and pinned into place with 2 additional pins and a cross pin for stability. The medial and lateral collateral ligaments were protected and the cut was performed. With this completed, it was assessed and noted to be of appropriate dimensions. The guide was removed. A spacer block was inserted and the knee was brought into extension. The 6mm spacer block provided full extension, without hyperextension and with stability of both the medial and lateral collateral ligaments was assessed. The pins from the femur and the tibia were then removed. The distal femur was then sized. The anterior stylus was placed onto the lateral ridge of the anterior femur. This indicated a size 6 femur. The external rotation of the guide was adjusted to 3 degrees to match the epicondylar axis, perpendicular to [place]?s line. The 4-in-1 cutting guide was the placed. The posterior medial femur cut was evaluated and appeared of good thickness. The spacer block was inserted underneath the cutting guide and stability was confirmed in 90 degrees of flexion. An nicanor wing was used to confirm appropriate position of the anterior cut to avoid notching. This cutting guide was ensured to be flush on the cut surface and then pinned into place with headed pins. While protecting the soft tissues, quad tendon, and collateral ligaments, the anterior and posterior cuts were performed with a saw. The central two pins were removed and the posterior and anterior chamfers were cut next. The notch-cutting guide was placed. This was pinned to lateralize the femoral component as much as possible while keeping it flush on the cut surface. This was then pinned into position. A reciprocating saw was used to make the notch cut. A rasp smoothed the cut surfaces. The medial and lateral menisci were removed. A trial femoral component was then inserted, impacted down to the cut surfaces, and the lug holes were drilled. A provisional trial tibial component was placed and the knee was brought through range of motion. There was noted to be excellent extension and flexion. There was no significant instability. The patella was tracking without thumbs. A size 6mm polyethylene component provided the best range of motion and stability with less than 2mm gapping with medial a nd lateral stress and full extension without significant hyperextension. The tibial cut surface was fully exposed. The tibia was then sized as a 6. The tibia had been previously marked during trialing to correspond to the center of the tibial component to help with rotation. The trial was aligned to this randy, approximately rotated to the medial 1/3rd of the tibial tubercle. The trial was pinned into place. The tibia was prepared with a reamer and a keel punch and lug holes. The knee was then brought into extension and the patella was measured as 28mm. Using the patellar clamp and cut guide, this was resected to a flat surface with at least 13mm of thickness remaining. The size 38 patella fit the best. This was oriented and then clamped into position. The lugs were drilled. The trial components were removed. The final components were opened on the back table. The periosteal and capsular tissues, especially posteriorly, around the knee were then systematically injected with a periarticular cocktail consisting of 246mg of Ropivacaine, 0.5mg of Epinephrine, 0.08mg of Clonidine, and 30mg of Ketorolac, diluted to 100cc. On the back table, with the implants opened, the cement was mixed. One batch of high viscosity cement was prepared with vacuum assistance. After the cement was ready a small amount was placed on the cut surface of the patella and the patellar button was clamped into position and held. While the cement was hardening, the cementless knee components were placed. Starting with the tibial component, the tibia was subluxed anteriorly and the lug holes of the component were lined up. The tibia was then impacted with an impactor and mallet until the tibial component was in contact with the tibia. The final polyethylene component was inserted. Then, the femoral component was inserted. The lug holes were aligned and the component was impacted into position. The knee was irrigated with Surgiphor Betadine solution. This was allowed to sit in the knee for 3 minutes and then it was irrigated out with saline. After the cement had finally cured, approximately 15min, the clamp was removed from the patella and the knee was taken through range of motion. The patella was tracking with a no-thumbs technique. The capsule was then reapproximated with a No. 1 Vicryl at multiple locations. The capsule was finally closed with a No. 2 Stratafix, barbed suture. The second dosing of 1g TXA was started. Deep tissues were then reapproximated with 0 Vicryl and 2-0 Vicryl. The skin was closed with a running 3-0 Monocryl in a subcuticular fashion. This was reinforced with skin glue. A Mepilex silver dressing was applied along with a [id number] SHILPI wrap. A CryoCuff was applied. Sergio was transferred to the hospital bed without difficulty an suffering no apparent complication. Sergio has a good prognosis. Physical therapy will start today and without restrictions, weight-bearing as tolerated. Aspirin 81mg BID will be used for DVT prophylaxis.
--- NOTE | 2022-08-27 09:53 | W.ANESPOSTOP ---
Postoperative Evaluation Date, Time and Location Date Performed: 08/27/22 Time Performed: 09:53 Patient Location: PACU Vital Signs Most Recent Imported Vital Signs: Most Recent Vital Signs Temp Pulse Resp BP Pulse Ox 36.4 C L 71 15 89/63 L 96 08/27/22 09:38 08/27/22 09:38 08/27/22 09:38 08/27/22 09:38 08/27/22 09:38 Pain Score Most Recent Pain Score: Most Recent Pain Score Pain Level 0 08/27/22 09:38 Assessment Mental Status: Awake (Alert & Oriented to Patient Baseline) Airway and Respiratory Function: Patent airway with normal (patient baseline) respiratory exam Cardiovascular Function: Hemodynamically Stable Hydration Status: Adequately Hydrated Nausea & Vomiting: No Nausea or Vomiting Pain: Pain is tolerable per patient Peripheral Nerve Block: Regional nerve block not resolved at time of post operative discharge
--- NOTE | 2022-08-27 12:16 | PT.INIE ---
Date of service: 08/27/22 Time of Service: 11:20 PT Notes Visit Reasons: Right Knee DJD SUBJECTIVE: Pain as expected R knee, appreciates some lateral stability with ambulation. Returning home with a discharge. He plans to reside in basement, walk-in level, in-law apartment until he can safely ambulate a full flight of stairs. There are no stairs to enter basement. Bedroom and bathroom on same floor, with a kitchen and living room. He owns a walker, which is at his home. 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 ROM: 0-90 deg R knee Gross Strength: WNL Motor Control: Unstable R LE Neuro: WNL Balance: Fair, with use of walker and supervision Functional Mobility: Independent bed mobility Supervision sit to stand at RW, and stand to sit. Supervision with stair navigation 2 up and 2 down x 2, 1 rail and ambulation x 40 ft Treatment: Initial Evaluation Advised and review Force SAL exercises to include heel slides, quad set, glute sets, SLR, ankle pumps Reviewed how to set proper height on walker when returning home to his own walker Review step to pattern with stair ambulation with rail Treatment Codes: 80368 Treatment Time: 30 min direct and total Patient Education: Instructed in HEP, see illustrated handout in patient chart for specifics. Review PT POC and reviewed exam findings. Answered patient questions. Patient receptive to education and agreeable to plan. ASSESSMENT: Patient is a 62-year-old male, referred for PT services S/P R TKR 08/27/22. Patient presents in recovery with appropriate safety and ability for return home with supervision, with use of RW. Post op condition is interfering with patient's ability to functional WNL. Impairments correlated with clinical diagnosis include: Gait instability and antalgia with demand of RW, R LE ROM deficit and instability appropriate for post op condition, resulting in functional transfer and ambulations deficits, requiring use of RW, supervision, and only short distance tolerance. He demonstrates good understanding of HEP. Patient is assessed as: low complexity History: See comorbidities and social history. Examination: See above for functional limitations and impairments. Presentation: stable Decision-Making: low complexity PLAN: Patient discharged home with , with RW waiting for him at home. Outpatient PT in 2 weeks. Patient independent with Force SAL x 2 weeks. He is to call the clinic at any time with questions or concerns. Slight errors may occur within document. Documentation completed with [employer] voice recognition software. Thank you for this referral. Please do not hesitate to contact me with any questions or concerns regarding this patient's plan of care. Please sign and return this page within 14 days if you agree with the above POC. Thank you! Referring Physician's Signature Date [facility]
== END 2022-08-27 12:36 | disposition home or self-care (01) ==
PROVIDERS: PCP Family Medicine; Visit Provider Student in an Organized Health Care Education/Training Program
PROC: (CPT 27447; principal; 2022-08-27 07:30)
DX: M17.31 Unilateral post-traumatic osteoarthritis, right knee (principal); D86.89 Sarcoidosis of other sites; Z95.810 Presence of automatic (implantable) cardiac defibrillator
CPT/HCPCS: 27447; 76942; 97161; J0690; J1100; J2250; J2405

== ENCOUNTER 2022-09-09 09:56 | Outpatient (CLI) | payer OTHER, SELFPAY ==
--- NOTE | 2022-09-09 09:45 | DI.RAD_ITS ---
Exam(s) XR KNEE RT 1V XR STANDING ALIGNMENT EXAM: XR STANDING ALIGNMENT and XR knee RT 1 V CLINICAL HISTORY: R TKR. TECHNIQUE: 2D digital imaging was performed. Five images were obtained. COMPARISON: CR XR STANDING ALIGNMENT from 06/21/2022 CR XR KNEE RT 3V AP,LAT,JACOBO from 06/21/2022 FINDINGS: BONES: The hips are well maintained. The patient is now status post right total knee replacement. T he orthopedic hardware appears in good position. There are findings of a prior left ACL repair. Mil c-zb-svabmplr degenerative changes are seen in the left knee with joint space narrowing, some chondro calcinosis and marginal spurring. The ankles are well maintained.There is no significant leg length discrepancy. SOFT TISSUE: Normal. IMPRESSION: Status post right TKA. DATA REPOSITORY: RADIATION DOSE DELIVERED:
--- NOTE | 2022-09-09 09:53 | DI.RAD_ITS ---
Exam(s) XR KNEE RT 1V XR STANDING ALIGNMENT EXAM: XR STANDING ALIGNMENT and XR knee RT 1 V CLINICAL HISTORY: R TKR. TECHNIQUE: 2D digital imaging was performed. Five images were obtained. COMPARISON: CR XR STANDING ALIGNMENT from 06/21/2022 CR XR KNEE RT 3V AP,LAT,JACOBO from 06/21/2022 FINDINGS: BONES: The hips are well maintained. The patient is now status post right total knee replacement. T he orthopedic hardware appears in good position. There are findings of a prior left ACL repair. Mil r-ds-iqduiioa degenerative changes are seen in the left knee with joint space narrowing, some chondro calcinosis and marginal spurring. The ankles are well maintained.There is no significant leg length discrepancy. SOFT TISSUE: Normal. IMPRESSION: Status post right TKA. DATA REPOSITORY: RADIATION DOSE DELIVERED:
== END 2022-09-09 09:57 | disposition home or self-care (01) ==
LOC: DIORS 09:56
PROVIDERS: PCP Family Medicine; Referring Provider Family Medicine; Visit Provider Physician Assistant
DX: Z96.651 Presence of right artificial knee joint (principal); Z98.890 Other specified postprocedural states
CPT/HCPCS: 73560; 77073

== ENCOUNTER 2023-08-28 09:14 | Outpatient (CLI) | payer OTHER, SELFPAY ==
--- NOTE | 2023-08-28 09:00 | DI.RAD_ITS ---
Exam(s) XR KNEE RT 2V AP,LAT EXAM: XR KNEE RT 2V AP,LAT CLINICAL HISTORY: ANNUAL F/U R TKA. TECHNIQUE: 2D digital imaging was performed. COMPARISON: CR XR KNEE RT 1V from 09/09/2022 FINDINGS: Two views. Stable position alignment of the components of the prosthesis. No fracture or loosening evident. IMPRESSION: Stable satisfactory appearance of the prosthesis components. It is interesting to note that the previously present calcific density posterior to the knee (which w as probably within a Feliciano cyst in the popliteal fossa) has significantly decreased in size. Previou sly measured 1.5 by 1.4 cm. Presently measures 0.6 x 0.4 cm. DATA REPOSITORY: RADIATION DOSE DELIVERED:
== END 2023-08-28 09:15 | disposition home or self-care (01) ==
LOC: DIORS 09:15
PROVIDERS: PCP Family Medicine; Visit Provider Student in an Organized Health Care Education/Training Program
DX: Z96.651 Presence of right artificial knee joint (principal); Z47.1 Aftercare following joint replacement surgery
CPT/HCPCS: 73560

== ENCOUNTER 2023-12-10 08:22 | Outpatient (CLI) | payer OTHER, SELFPAY ==
--- NOTE | 2023-12-10 08:15 | RT.EKG_ITS ---
APPROVED REPORT Exam: Resting ECG Reason for Exam: VT Patient Location: O HR:73 bpm ECG Measurements Heart Rate 73 AXIS DC 210 P 35 QRSd 153 QRS -22 QT 409 T -2 QTc 451 Conclusion Sinus rhythm...normal P axis, V-rate 50- 99 Probable left atrial enlargement...P >50mS, <-0.10mV V1 Right bundle branch block...QRSd>120, terminal axis(90,270) Left ventricular hypertrophy...multiple LVH criteria I have reviewed and interpreted ECG and agree with software generated interpretation.
== END 2023-12-10 08:23 | disposition home or self-care (01) ==
LOC: DI.CARD 08:23
PROVIDERS: PCP Family Medicine; Visit Provider Physician Assistant
DX: I42.8 Other cardiomyopathies (principal); I47.20 Ventricular tachycardia, unspecified
CPT/HCPCS: 93010

== ENCOUNTER → 2024-01-23 00:51 | Outpatient (CLI) | payer OTHER, SELFPAY ==
--- NOTE | 2024-01-23 14:01 | DI.US_ITS ---
APPROVED REPORT EXAM: Comprehensive 2D, Doppler, and color-flow Echocardiogram Patient Location: Out-Patient Procurement Services Manager: Courtney Self RDCS (AE) Indications: CMP. Ventricular tachycardia, Nonischemic cardiomyopathy Other Information Study Quality: Good Conclusion Normal left ventricular wall thickness and chamber size. Ejection fraction is 55%. Wall motion is n ormal Normal right ventricular size and function Both atria are normal in size Device lead noted in the right heart The aortic valve is trileaflet, mildly sclerotic with trace regurgitation Normal mitral valve with trace to mild regurgitation Normal tricuspid valve with trace to mild regurgitation. Estimated right ventricular systolic pressu re is 24mmHg Ascending aorta measures 3.53 cm Wall motion Left Ventricle The left ventricle is normal size. The left ventricular systolic function is normal. The left ventric ular ejection fraction is within the normal range. There is normal left ventricular wall thickness. T here is normal LV segmental wall motion. There is no ventricular septal defect visualized. LVEF is 55 %. Right Ventricle Right ventricle is grossly normal in size. Right ventricular systolic function is grossly normal. Dev ice lead is present in the right ventricle. Atria The left atrium size is normal. The right atrium size is normal. The interatrial septum is intact wit h no evidence for an atrial septal defect. Aortic Valve The Aortic valve is mildly sclerotic. Aortic valve is trileaflet. There is no aortic valvular stenosi s. Trace aortic regurgitation. Mitral Valve The mitral valve is normal in structure. No evidence of mitral valve stenosis. Trace to mild mitral r egurgitation. Tricuspid Valve The tricuspid valve is normal in structure. There is no tricuspid valve stenosis. Trace to mild tricu spid regurgitation. The RVSP is 24.5_ mmHg. Pulmonic Valve The pulmonary valve is normal in structure. There is no pulmonic valvular stenosis. Trace pulmonic re gurgitation. Great Vessels The aortic root is normal in size. The ascending aorta is mildly dilated. Aortic arch is not complete ly visualized. IVC is normal in size and collapses >50% with inspiration. Pericardium There is no pericardial effusion. 2D Dimensions IVSD d PLAX 1.25 cm M: 0.6-1.2 Ao Root d 3.28 cm M: 3.1 - 3.7 LVPW d PLAX 1.22 cm M: 0.6 - 1.2 Ao Asc Diam d 3.53 cm M: 2.6 - 3.4 LVID d PLAX 4.63 cm M: 4.2 - 5.8 Left Atrium 1.97 cm M: 3.0 - 4.0 LVDs 3.30 cm M: 2.5 - 4.0 LV EF Teichholz 55.5 % FS 28.81 % LV EDV (Teich) 99.0 mL LV ESV (Teich) 44.1 mL Auto EF LV EDV A4C 147.7 mL LV EDV A2C 161.3 mL LV EDV BP 153.0 mL LV ESV A4C 69.9 mL LV ESV A2C 76.3 mL LV ESV BP 71.7 mL LVEF(%) A4C 52.6 % LVEF(%) A2C 52.7 % LVEF(%) BP 53.1 % LV SV A4C 77.7 ml LV SV A2C 85.0 ml LV SV BP 81.3 ml LV CO A4C 4.9 L/min LV CO A2C 5.1 L/min LV CO BP 5.0 L/min HR A4C 62.72 BPM HR A2C 59.61 BPM LV EDV Index (BP) RV Strain Global Peak Long. Strain A4C 11.54 Global Peak Long. Strain A4C FW 15.63 LA Volume LA Length A4C 6.0 cm LA Length A2C 5.6 cm LA Area A4C s 20.44 cm2 LA Area A2C s 17.75 cm2 LA Vol A4C A-L 59.61 mL LA Vol A2C A-L 47.87 mL LA Vol Biplane A-L 55.1 mL LA Vol/BSA A4C A-L LA Vol/BSA A2C A-L LA Vol/BSA BP A-L 28.4 mL/m2 LA Vol A4C MOD 51.4 mL LA Vol A2C MOD 44.6 mL LA Vol BP MOD 49.1 mL RA Volume RA Area A4C 12.0 cm2 RA ESV A4C (A-L) 25.2mL RA Vol/BSA A4C A-L RA Length A4C 4.8 cm RA ESV A4C (MOD) 23.8mL LV Diastology MV E Vmax 0.68 (0.4-1.3 m/s) MV A Vmax 0.90 (0.4-1.3 m/s) E/A Ratio 0.8 Aortic Valve AoV Vmax 1.58 m/s LVOT Vmax 1.30 m/s AoV Peak Grad 36.4 mmHg LVOT Peak Grad 6.7 mmHg AoV VTI 0.345 m LVOT VTI 0.275 m AoV Mean Ronald. 1.04 m/s LVOT Mean Grad 3.3 mmHg AoV Mean Grad 5.0 mmHg AV Regurg Peak Gr. 62.70 mmHg Velocity Ratio 0.82 AR Decel Conway 1.5m/sec2 AR DT 2684 msec AR PHT 778 msec AR Vmax 3.96 m/s Mitral Valve MV DT 170 (160-240 msec) MV Vmax TIPS 0.85 m/s MV Mean Grad 1.2 (<2mmHg) MV VTI 0.297 m Pulmonary Valve PV Vmax 0.87 (0.5-1.5 m/s) RVOT Vmax 0.58 m/s PV Peak Grad 3.1 mmHg RVOT Peak Gr. 1.4 mmHg PV Mean Ronald 0.66 m/s RVOT VTI 0.127 m PV Mean Grad 1.9 mmHg RVOT Mean Gr. 0.8 mmHg Tricuspid Valve RA Pressure 3.00 mmHg TR Vmax 2.32 m/s TR Peak Grad 21.5 mmHg RVSP (TR) 24.5 mmHg
== END ==
PROVIDERS: PCP Family Medicine; Visit Provider Physician Assistant
DX: I42.8 Other cardiomyopathies
CPT/HCPCS: 93306

== ENCOUNTER → 2024-12-08 13:03 | Outpatient (BNVA) | payer MEDICARE, SELFPAY | PROVIDERS: PCP Family Medicine; Referring Provider Family Medicine; Visit Provider Student in an Organized Health Care Education/Training Program | DX: Z95.810 Presence of automatic (implantable) cardiac defibrillator (principal); D86.85 Sarcoid myocarditis; I47.20 Ventricular tachycardia, unspecified | CPT/HCPCS: 93282 ==

== ENCOUNTER → 2024-12-09 11:22 | Outpatient (BNVA) | payer MEDICARE, SELFPAY | PROVIDERS: PCP Family Medicine; Referring Provider Family Medicine; Visit Provider Physical Therapy Assistant | DX: Z12.11 Encounter for screening for malignant neoplasm of colon (principal); D86.85 Sarcoid myocarditis; I42.8 Other cardiomyopathies ==

== ENCOUNTER 2024-12-20 06:16 | Day surgery (SDC) | payer MEDICARE, SELFPAY ==
--- NOTE | 2024-12-19 18:21 | W.PM.DSUDISC ---
Date of service: 12/20/24 Discharge Plan Disposition Patient Disposition: Home Condition: Good Discharge Details Reason For Visit: screening colonoscopy Attending Provider: Albin Wan Primary Care Provider: Kell Dangelo Home Meds and New Rx's Prescriptions: Continued aspirin [Adult Aspirin Regimen] 81 mg tablet,delayed release (DR/EC) 81 mg PO DAILY rosuvastatin [Crestor] 5 mg tablet 5 mg PO DAILY Discharge Instructions Instructions: Colon polyps, Diverticulosis Additional Instructions: Dr Lord, I hope you were comfortable through the procedure. Everything went very smoothly. Your prep was excellent, and I could see everything fine. I did find to remove a single polyp today. To be honest, I am a little skeptical that it was adenomatous, but to be safe, I did remove this, and will be sent off to the pathologist for their review. Incidentally, he also have some sigmoid diverticulosis. I attached the basic information here about diverticulosis as well as polyps, although I suspect you are quite familiar with its content. Hopefully, your diverticula never bother you, but if you ever need anything or have any questions about it, please do not hesitate to ask. The pathology has been taking about 5 to 10 days to get back on the polyps, and as soon as I have that I will let you know the results, and recommendations for your next colonoscopy. If you need anything else in the meantime, do not hesitate to call. 1. If tolerated, consume a soft, low fiber diet for 1-2 days. 2. Do not drive, drink alcohol, operate machinery, make critical decisions, or do activities that require coordination or balance for 24 hours. 3. Because air was put into your colon during the procedure, expelling air from your rectum (passing gas or farting) is normal. 4. You may not have a bowel movement for 1-3 days because of the colonoscopy prep. This is normal. 5. Go directly to the emergency room if you notice any of the following: Develop chills (warm to touch), or if you have a thermometer and your temperature is above 101 Difficulty breathing or difficultly swallowing Persistent vomiting Severe abdominal pain, other than gas cramps Severe chest pain Black, tarry stools Any bleeding ? exceeding one tablespoon 6. Call your physician if the site where your intravenous was started becomes red, swollen, painful, and warm to touch. 7. Your physician has reviewed your pre-procedure medications. Please continue to take those medications as previously ordered. You will be given specific information/education regarding any changes to your medications before leaving. Stand Alone Forms: Anesthesia Discharge Juan Jose Metz (DSU) Activity:: Activity as Tolerated Diet:: As Tolerated Discharge Orders Discharge Orders: Discharge Order (Routine); Ordered 12/19/24 Ordered By: Albin Wan DS: Diagnosis Discharge Diagnosis (1) Encounter for screening colonoscopy: Status: Acute Asessment and Plan: Sigmoid diverticulosis; single polyp at 35 cm; follow-up on polypectomy results
--- NOTE | 2024-12-19 18:22 | W.COLOREPORT ---
Date of service: 12/20/24 Time of Service: 08:01 Colonoscopy Report Date of procedure: 12/20/24 Pre-op diagnosis general: screening colonoscopy Post-op diagnosis procedure note: other (Colon polyp, sigmoid diverticulosis) Procedure: colonoscopy with polypectomy Surgeon: Albin Wan Anesthesia Type: General:No Airway Estimated blood loss (mL): 5 Pathology: other (0.25 cm flat polyp at 35 cm) Complications: None Disposition: same day Indications: Fredis is a 64 year old man who needs his next screening colonoscopy Prep: Miralax/Dulcolax Procedure Start Time: 07:36 Procedure End Time: 07:52 Retraction Time: 8 Findings: Sigmoid diverticulosis extending from about 20 to 40 cm; 0.25 cm flat polyp at 35 cm Procedure Description: After the induction of anesthesia, and with the patient in left lateral decubitus position, I began by performing an external anorectal exam.? Perineum and skin were normal, as was the anal verge.? There was no evidence of external hemorrhoids.? Next, I performed a digital rectal exam.? I did not appreciate any abnormal findings.? Next, I advanced a colonoscope into the rectal vault.? I performed retroflexion.? This appeared normal.? Using insufflation, I then advanced the colonoscope beyond the rectal folds and into the sigmoid colon before advancing towards the cecum.? The quality of the prep was excellent.? There was sigmoid diverticulosis. The scope was noted to be in the cecum by identification of the ileocecal valve and appendiceal orifice.? I then began withdrawing the colonoscope using repeated irrigation as necessary for full evaluation of the colonic mucosa. Diverticula were encountered about 40 cm from the anal verge. Generally there are narrow mouth. There is no evidence of any active inflammation. A 0.25 cm flat polyp was found around 35 cm from the anus. Narrowband imaging was used to assist with the analysis. Generally, features seemed most consistent with an inflammatory or hyperplastic polyp, but to be safe, I did perform cold forcep polypectomy here. There was minimal bleeding. Diverticula extended down to about 20 cm beyond the anus. Once the scope was withdrawn to the level of the rectum, great care was taken to examine portions of the rectal folds.? Finally, the scope was withdrawn and the patient was brought to the same-day surgery recovery unit as the anesthetic wore off. ?The findings and instructions were shared with the patient prior to discharge. Tustin Bowel Prep Tustin Bowel Prep Right Colon: 3 Left Colon: 3 Transverse Colon: 3 Total Score: 9
[2024-12-20 06:24] VITALS: BP 133/84; PULSE 68; RESP 17; TEMP 36.1; O2SAT 97
[2024-12-20] MEDS: Lactated Ringers 1,000 ML 80 ML IV (06:37)
--- NOTE | 2024-12-20 06:52 | ANES.PREOP_ITS ---
General Info Date of Service Date Performed: 12/20/24 Height: 5 ft 6 in Weight: 86.2 kg Body Mass Index (BMI): 30.7 Surgical Procedure: Operation Date: 12/20/24 07:35 Proposed Procedure Side Surgeon britney Wan MD Meds Allergies and Home Medications Allergies Allergy/AdvReac Type Severity Reaction Status Date / Time No Known Allergies Allergy Verified 12/20/24 06:34 Home Medication ?Medication ?Instructions ?Recorded rosuvastatin 5 mg tablet (Crestor) 5 mg PO DAILY 06/21/22 aspirin 81 mg tablet,delayed 81 mg PO DAILY 11/28/22 release (Adult Aspirin Regimen) Current Visit Medications: Current Medications Generic Name Dose Route Start Last Admin Trade Name Freq PRN Reason Stop Dose Admin Ringer's Solution 1,000 mls @ 80 mls/hr 12/20/24 06:00 12/20/24 06:37 IV 01/16/25 23:59 80 mls/hr INFUSION GERSON Administration IV Miscellaneous Supplies 1 each 12/20/24 06:00 Iv Access IV 01/16/25 23:59 DIRECTED GERSON Ondansetron HCl 4 mg 12/19/24 18:23 Ondansetron 4 Mg/2 Ml Vial IVP 01/18/25 18:22 Q4H PRN PRN Nausea / Vomiting Sodium Chloride 0 ml 12/20/24 06:00 Normal Saline Flush 10 Ml Syr IV 01/16/25 23:59 PRN PRN Sodium Chloride 0 ml 12/20/24 06:00 Normal Saline 10 Ml Vial IJ 01/16/25 23:59 DIRECTED PRN Sterile Water 0 ml 12/20/24 06:00 Water,Injection,Sterile 10 Ml Vial IJ 01/16/25 23:59 DIRECTED PRN PFSH Active Problems Active Problems: Problem Status Onset Code Encounter for screening colonoscopy Acute Z12.11 History of total right knee replacement (TKR) Acute 08/27/22 Z96.651 Derangement of medial meniscus of left knee Acute 11/11/16 M23.304 VT (ventricular tachycardia) Chronic I47.2 Nonischemic cardiomyopathy Chronic I42.8 Sarcoidosis Chronic D86.9 ICD (implantable cardioverter-defibrillator) in place Chronic Z95.810 Encounter for screening for other viral diseases Acute Z11.59 Left carpal tunnel syndrome Acute G56.02 Ulnar neuropathy at elbow of left upper extremity Acute G56.22 Encounter for screening laboratory testing for COVID-19 virus Acute Z20.822 Medical History Medical History CAD (coronary artery disease) Pt. denies this Cardiac sarcoidosis Hx of ventricular tachycardia Surgical History Surgical History Arthroplasty of knee L Knee: ACL Repair R Knee: Menicus repair Per pt. no knee replacement History of bilateral carpal tunnel release History of bronchoscopy History of cardiac catheterization 2017-pt.states no stents. History of carpal tunnel surgery of right wrist Hx of colonoscopy Hx of right knee surgery Tobacco Smoking/Tobacco Use Status: Never Alcohol Alcohol Intake: current Alcohol intake frequency: 0-2 drinks per day Alcohol type: wine Substance Use Substance use: Never Substance use type: does not use Vital Signs and Lab Results Vital Signs Most Recent Vital Signs in EMR: Most Recent Vital Signs Temp Pulse Resp BP Pulse Ox 36.1 C L 68 17 133/84 97 12/20/24 06:24 12/20/24 06:24 12/20/24 06:24 12/20/24 06:24 12/20/24 06:24 Lab Results Blood Type / Crossmatch: No Data to Display Complete Blood Count: No Data to Display Complete Metabolic Panel: No Data to Display Liver Function Panel: No Data to Display Coagulation Panel: No Data to Display Cardiac Panel: No Data to Display Arterial Blood Gas: No Data to Display Venous Blood Gas: No Data to Display Pancreas Panel: No Data to Display Thyroid Panel: No Data to Display Infectious Disease: No Data to Display Blood Cultures: No Data to Display Toxicology Panel: No Data to Display Imaging and Studies Imaging and Studies Study information below may be from another EMR and interpreted by another provider. Please see original notes in EMR for more complete details. EKG Summary: 12/10/23: Conclusion Sinus rhythm...normal P axis, V-rate 50- 99 Probable left atrial enlargement...P >50mS, <-0.10mV V1 Right bundle branch block...QRSd>120, terminal axis(90,270) Left ventricular hypertrophy...multiple LVH criteria I have reviewed and interpreted ECG and agree with software generated interpretation. Stress Test Summary: cardiopulmonary stress test, 10/2021: non-diagnositc, nonspecific evidence of ischemia, Echocardiogram Summary: 01/23/24: Conclusion Normal left ventricular wall thickness and chamber size. Ejection fraction is 55%. Wall motion is normal Normal right ventricular size and function Both atria are normal in size Device lead noted in the right heart The aortic valve is trileaflet, mildly sclerotic with trace regurgitation Normal mitral valve with trace to mild regurgitation Normal tricuspid valve with trace to mild regurgitation. Estimated right ventricular systolic pressure is 24mmHg Ascending aorta measures 3.53 cm Anesthesia Assessment and Plan Anesthesia History Personal History: No History of Anesthesia Complications Family History: No Family History of Anesthesia Complications Exercise Tolerance Exercise Tolerance: Metabolic Equivalents>4 Cardiac & Pulmonary Exam Cardiac Exam: Normal S1/S2 Heart Sounds Pulmonary Exam: Clear Bilateral Breath Sounds Implantable Cardiac Device Does patient have a Pacemaker or an ICD?: Yes Device Gold Burnisher:: Jut [employer] Reason for Placement:: spontaneously sustained V-tach Date of Last Device Interrogation:: 12/08/24 Airway Exam Known Difficult Airway: No Mallampati Class: 2 Mouth Opening: Normal (> 3cm) Thyromental Distance: Greater than 3 cm Neck Range of Motion: Full ROM Neck Circumference: Normal Teeth Condition: Normal Dentition ASA Classification ASA Score: ASA 3 Emergency Case?: No NPO Status NPO Status: NPO Clears >2 hours, Solids >8 hours Anesthesia Plan Resuscitation Status: Full Code Anesthesia Technique: General Anesthesia Airway Planned: Natural Airway Monitors Used: Standard Monitors
[2024-12-20 07:18] VITALS: BMI 30.7
--- NOTE | 2024-12-20 07:49 | BOWEL_PTH ---
PATIENT: Fredis Lord LOC: [facility] U#:[id number] AGE/SX: 64/M ROOM: RE12/20/[address]: Albin Wan MD : [id number] BED: DIS: 12/20/2024 SPEC #: [id number] RECD: 12/20/24 12:14 STATUS: JHOANA RE #: [id number] ZOË: 12/20/24 07:[address]: Albin Wan DEPT: Surgical Specimen RECD BY: Anaid Haji ENTERED: 12/20/24 12:15 SP TYPE: Bowel OTHR DR: Kell Dangelo Tissues: 1 - BIOPSY BOWEL Procedures: GROSS AND MICRO LEVEL 4 Comments: [id number]
[2024-12-20 07:58] VITALS: BP 131/77; PULSE 74; RESP 16; TEMP 36.2; O2SAT 97
[2024-12-20 08:22] VITALS: BP 141/88; PULSE 58; RESP 16; TEMP 36.5; O2SAT 95
--- NOTE | 2024-12-20 08:33 | W.ANESPOSTOP ---
Postoperative Evaluation Date, Time and Location Date Performed: 12/20/24 Time Performed: 08:15 Patient Location: Day Surgery Unit Vital Signs Most Recent Imported Vital Signs: Most Recent Vital Signs Temp Pulse Resp BP Pulse Ox 36.2 C L 74 16 131/77 97 12/20/24 07:58 12/20/24 07:58 12/20/24 07:58 12/20/24 07:58 12/20/24 07:58 Pain Score Most Recent Pain Score: Most Recent Pain Score Pain Level 0 12/20/24 07:58 Assessment Mental Status: Awake (Alert & Oriented to Patient Baseline) Airway and Respiratory Function: Patent airway with normal (patient baseline) respiratory exam Cardiovascular Function: Hemodynamically Stable Hydration Status: Adequately Hydrated Nausea & Vomiting: No Nausea or Vomiting Pain: Pt. Denies Any Pain Peripheral Nerve Block: Patient did not receive a nerve block
== END 2024-12-20 08:42 | disposition home or self-care (01) ==
LOC: SUR 06:16
PROVIDERS: PCP Family Medicine; Visit Provider Surgery
PROC: 0DJD8ZZ Inspection of Lower Intestinal Tract, Via Natural or Artificial Opening Endoscopic (ICD-10-PCS; CPT 45378; principal; 2024-12-20 07:30)
DX: Z12.11 Encounter for screening for malignant neoplasm of colon (principal); D12.5 Benign neoplasm of sigmoid colon; K57.30 Diverticulosis of large intestine without perforation or abscess without bleeding
CPT/HCPCS: 45380; 88305; J2704

== ENCOUNTER → 2025-04-11 08:52 | Outpatient (BNVA) | payer MEDICARE, SELFPAY | PROVIDERS: PCP Family Medicine; Referring Provider Family Medicine; Visit Provider Student in an Organized Health Care Education/Training Program | DX: M67.441 Ganglion, right hand (principal) | CPT/HCPCS: 99214 ==

== ENCOUNTER 2025-10-12 07:45 | Outpatient (CLI) | payer MEDICARE, SELFPAY ==
--- NOTE | 2025-10-12 07:45 | RT.EKG_ITS ---
APPROVED REPORT Exam: Resting ECG Reason for Exam: cardiac sarcoidosis Patient Location: O HR:71 bpm ECG Measurements Heart Rate 71 AXIS IA 217 P 44 QRSd 159 QRS -26 QT 423 T -10 QTc 460 Conclusion Sinus rhythm...normal P axis, V-rate 50- 99 Borderline prolonged IA interval...IA >212, V-rate 50- 90 Right bundle branch block...QRSd>120, terminal axis(90,270) Left ventricular hypertrophy...multiple LVH criteria
== END 2025-10-12 07:46 | disposition home or self-care (01) ==
LOC: DI.CARD 07:46
PROVIDERS: PCP Family Medicine; Visit Provider Registered Nurse
DX: Z95.810 Presence of automatic (implantable) cardiac defibrillator (principal); I45.10 Unspecified right bundle-branch block; I51.7 Cardiomegaly
CPT/HCPCS: 93010

== ENCOUNTER → 2025-10-12 14:14 | Outpatient (BNVA) | payer MEDICARE, SELFPAY | PROVIDERS: PCP Family Medicine; Visit Provider Registered Nurse | DX: I47.20 Ventricular tachycardia, unspecified (principal); Z45.02 Encounter for adjustment and management of automatic implantable cardiac defibrillator; Z79.02 Long term (current) use of antithrombotics/antiplatelets | CPT/HCPCS: 93005; 93283 ==